=== PATIENT | male | born 1955 | race Caucasian/White ===

== ENCOUNTER → 2016-10-16 | Outpatient (CLI) | payer BC ==
--- NOTE | 2016-10-16 11:49 | RADRPT ---
PROCEDURE: XR Pelvis and Hips. CLINICAL INDICATION: Pelvic pain. Bilateral hip pain. TECHNIQUE: Five views. Frontal pelvis. Frontal and lateral right hip. Frontal and lateral left hip. COMPARISON: No prior studies are available for comparison. FINDINGS: There is no fracture or dislocation. The soft tissues are normal. There are moderate to severe degenerative changes of both hips with joint space narrowing, osteophyt es, subarticular sclerosis, and mild deformity. There is no lytic or blastic lesion. There are degenerative changes of the lower lumbar spine. IMPRESSION: 1. Moderate to severe degenerative changes of both hips. 2. Degenerative changes of the lower lumbar spine. 3. No acute abnormality. RPTAT: QQ .Geremias Rutledge MD, MD Date Time Electronically viewed and signed by .Geremias Rutledge MD, MD on 10/16/2016 11:49 .R/
== END | disposition home or self-care (01) ==
LOC: HKI 08:55
PROVIDERS: ATTEND Orthopaedic Surgery
DX: M16.0 Bilateral primary osteoarthritis of hip (principal); I10 Essential (primary) hypertension; M25.752 Osteophyte, left hip; M25.751 Osteophyte, right hip; Z87.828 Personal history of other (healed) physical injury and trauma
CPT/HCPCS: 73523; G0463

== ENCOUNTER → 2017-01-24 | Outpatient (CLI) | payer BC ==
[~2017-01-24] MED LIST: AMLO2.5T78 PO; LOSA1TAB20 PO
== END | disposition home or self-care (01) ==
LOC: HKI 10:22
PROVIDERS: ATTEND Orthopaedic Surgery
DX: Z01.818 Encounter for other preprocedural examination (principal); M16.0 Bilateral primary osteoarthritis of hip; M25.552 Pain in left hip; M25.551 Pain in right hip; I10 Essential (primary) hypertension; E66.01 Morbid (severe) obesity due to excess calories; Z68.41 Body mass index [BMI] 40.0-44.9, adult
CPT/HCPCS: G0463

== ENCOUNTER 2017-01-30 05:28 | Inpatient (IN) | payer BC ==
[2017-01-24 13:48] VITALS: Ht 185.4 cm; Wt 145.4 kg
[2017-01-30] VITALS (25 sets, daily range): BP systolic 116–151; BP diastolic 61–87; PULSE 66–79; RESP 12–20
[~2017-01-30] VITALS: Ht 185.4 cm; Wt 145.4 kg
[2017-01-30] MEDS ORDERED: SOD CHLORIDE 0.9% IV ONE (05:30)
[2017-01-30] MEDS ORDERED: PAIN COCKTAIL-CEFUROXIME IRR ONE ×7 (05:30)
[2017-01-30] MEDS ORDERED: TRANEXAMIC ACID IVPB ONE ×3 (05:30→16:30)
[2017-01-30] MEDS ORDERED: PREGABALIN 300 MG PO X1 PO ONE (05:30)
[2017-01-30] MEDS ORDERED: oxyCODONE (CR) 10 MG TAB [oxyCONTIN] X1 DOSE PO ONE (05:30)
[2017-01-30] MEDS ORDERED: CELECOXIB 400 MG PO X1 DOSE PO ONE (05:30)
[2017-01-30] MEDS ORDERED: LACTATED RINGER'S 1,000 ML IV SCH (05:30)
[2017-01-30] MEDS ORDERED: traMADOL 50 MG TAB X 1 DOSE PO ONE (05:30)
[2017-01-30] MEDS ORDERED: CEFAZOLIN 3 GM in SOD CHLORIDE 0.9% 100 ML IVPB ONE (05:30)
[2017-01-30] MEDS ORDERED: BUPIVACAINE LIPOSOME/PF 266 MG/20 ML VIAL INFIL ONE (05:30)
[2017-01-30] MEDS ORDERED: SOD CHLORIDE 0.9% IVPB ONE ×3 (05:30→16:30)
[2017-01-30] MEDS ORDERED: TRANEXAMIC ACID IV ONE (05:30)
[2017-01-30] MEDS ORDERED: PREG300C PO (06:11)
[2017-01-30] MEDS ORDERED: VANCOMYCIN 1 GM INJ ONE (06:49)
[2017-01-30] MEDS ORDERED: POLYMYXIN B 500000 UNIT INJ ONE (06:49)
[2017-01-30] MEDS ORDERED: BACITRACIN 50000 UNITS INJ ONE (06:51)
[2017-01-30] MEDS ORDERED: SUCCINYLCHOLINE CHLORIDE 100 MG/5 ML SYG IV ONE (07:00)
[2017-01-30] MEDS ORDERED: LIDOCAINE 2% (SDV) 5 ML INJ ONE (07:00)
[2017-01-30] MEDS ORDERED: MIDAZOLAM 1 MG/ML 2 ML INJ ONE (07:09)
[2017-01-30] MEDS ORDERED: PROPOFOL 20 ML ONE (07:09)
[2017-01-30] MEDS ORDERED: ROCURONIUM 50 MG INJ ONE (07:09)
[2017-01-30] MEDS ORDERED: NEOSTIGMINE 3 MG/3 ML SYRINGE ONE (07:09)
[2017-01-30] MEDS ORDERED: GLYCOPYRROLATE 0.4 MG INJ ONE (07:09)
[2017-01-30] MEDS ORDERED: FENTAnyl 50 MCG/ML VIAL ONE (07:09)
[2017-01-30] MEDS ORDERED: ONDANSETRON 4 MG INJ ONE (07:09)
[2017-01-30] MEDS ORDERED: CEFAZOLIN 1 GM INJ ONE ×2 (07:09→08:45)
[2017-01-30] MEDS ORDERED: DEXAMETHASONE 4 MG/ML 1 ML INJ ONE (07:09)
--- NOTE | 2017-01-30 07:14 | HPN ---
Date/Time of Note Date/Time of Note DATE: 01/30/17 TIME: 07:13 Interval H&P Admission Note Pt. seen H&P reviewed: No system changes No change from H&P on 01/25/2017 by NAINA Quach MD Jan 30, 2017 07:14
[2017-01-30] MEDS ORDERED: HYDROmorphONE (0.2 MG/ML) 10ML SYG IV PRN ×3 (08:30)
[2017-01-30] MEDS ORDERED: TRIMETHOBENZAMIDE 100 MG/ML VIAL IM PRN (08:30)
[2017-01-30] MEDS ORDERED: FENTAnyl 50 MCG/ML VIAL IV PRN ×3 (08:30)
[2017-01-30] MEDS ORDERED: DIPHENHYDRAMINE 50 MG INJ IV PRN (08:30)
[2017-01-30] MEDS ORDERED: MIDAZOLAM 1 MG/ML 2 ML INJ IV PRN (08:30)
[2017-01-30] MEDS ORDERED: EPHEDrine SULFATE 50 MG/5 ML SYG IV PRN (08:30)
[2017-01-30] MEDS ORDERED: ONDANSETRON 4 MG INJ IV PRN ×2 (08:30→10:30)
[2017-01-30] MEDS ORDERED: LABETALOL HCL 20MG INJ IV PRN (08:30)
[2017-01-30] MEDS ORDERED: MEPERIDINE 25 MG INJ IV PRN (08:30)
[2017-01-30] MEDS ORDERED: hydrALAzine 20 MG INJ IV PRN (08:30)
[2017-01-30] MEDS ORDERED: PROPOFOL 100 ML ONE (08:45)
[2017-01-30] MEDS ORDERED: EXPAREL NOTE (BUPIVICAINE LIPOSOMAL) XX SCH (10:00)
[2017-01-30] MEDS ORDERED: BISACODYL 10 MG SUPP PR PRN (10:30)
[2017-01-30] MEDS ORDERED: NA PHOSPHATE/BIPHOS 133 ML ENEMA PR PRN (10:30)
[2017-01-30] MEDS ORDERED: oxyCODONE 5 MG TAB PO PRN ×2 (10:30)
[2017-01-30] MEDS ORDERED: CEFAZOLIN 1 GM/50 ML (PMX) 50 ML IVPB SCH (10:30)
[2017-01-30] MEDS ORDERED: DIPHENHYDRAMINE 25 MG CAP PO PRN (10:30)
[2017-01-30] MEDS ORDERED: NACL 0.9% 3 ML SYG IV SCH (10:30)
[2017-01-30] MEDS ORDERED: ASPIRIN (EC) 325 MG TAB PO ONE ×2 (10:30→10:56)
[2017-01-30] MEDS ORDERED: HYDROmorphONE 1 MG/ML SYG IV PRN (10:30)
[2017-01-30] MEDS ORDERED: MAGNESIUM HYDROXIDE 30ML CUP PO PRN (10:30)
--- NOTE | 2017-01-30 10:41 | OPR ---
Date/Time of Note Date/Time of Note DATE: 01/30/17 TIME: 10:40 Operative Report Free Text/Dictation Dictation # [id number] Procedure Date: Jan 30, 2017 Preoperative Diagnosis Left Hip OA Postoperative Diagnosis Same Operation Performed Left Anterior RADHA Surgeon: NAINA CONTRERAS MD resident assistant: SOFIE KILLIAN PA-C Anesthesia: general Anesthesiologist: Lorne Quinones M.D. Estimated Blood Loss: 250 - 300 ml's Specimens Femoral Head Tubes/Drains Hemovac x 1 Complications: None Pt Condition Post Procedure: stable Disposition: PACU NAINA CONTRERAS MD Jan 30, 2017 10:41
--- NOTE | 2017-01-30 10:46 | PN ---
Date/Time of Note Date/Time of Note DATE: 01/30/17 TIME: 10:41 Assessment/Plan Lines/Catheters IV Catheter Type (from Nrsg): Peripheral IV Assessment/Plan Assessment/Plan Stable in PACU, s/p left anterior RADHA -continue Ancef 3g x 24 hours until drain removed -pain meds as needed -ASA/SCDs for DVT prophylaxis -OOB with PT -check AM labs -monitor drain -d/c torres in AM XR of the left hip is pending at this time Subjective 24 Hr Interval Summary Stable in PACU. Moving all extremities. Denies pain. Exam/Review of Systems Vital Signs Vitals Vital Signs Date Time Temp Pulse Resp B/P Pulse Ox O2 Delivery O2 Flow Rate FiO2 01/30/17 10:32 98.2 01/30/17 06:17 74 16 137/87 93 Room Air Intake and Output 01/29/17 01/29/17 01/30/17 15:00 23:00 07:00 Intake Total 0 ml Output Total 500 ml Balance -500 ml Exam Free Text/Dictation Hemovac: minimal Dressing dry Incision clean, dry, and intact without redness or drainage 5/5 Quadriceps, Tibialis Anterior, EHL, Gastroc, Soleus, Peroneals Normal sensation Palpable DT/PT, CR <2 sec No distal edema SOFIE KILLIAN PA-C Jan 30, 2017 10:46
[2017-01-30] MEDS: CEFAZOLIN 2 GM/50 ML (PMX) 50 ML IVPB SCH ×2 (11:06→19:36)
[2017-01-30 11:15] LABS: HEMATOCRIT 38.5 % (42.0-52.0); HEMOGLOBIN 12.9 g/dl (14.0-18.0)
[2017-01-30 11:27] LABS: CALCIUM 8.7 mg/dl (8.4-10.2); CREATININE 0.92 mg/dl (0.61-1.24); POTASSIUM 3.1 mmol/L (3.5-5.1)
--- NOTE | 2017-01-30 11:38 | OPR ---
DATE OF OPERATION: 01/30/2017 PREOPERATIVE DIAGNOSIS: Left hip osteoarthritis. POSTOPERATIVE DIAGNOSIS: Left hip osteoarthritis. OPERATION PERFORMED: Left anterior total hip arthroplasty. SURGEON: Naina Bruce MD LIBRARY TECHNICIAN: MAG Hua COMPONENTS USED: DePuy size 56 mm Gription Stockton cup, 56/36 neutral AltrX polyethylene liner, si ze 13 standard Corail stem, 36+5 ceramic head. ANESTHESIA: Spinal plus general endotracheal intubation plus periarticular injection. ANESTHESIOLOGIST: Dr. Joni MD ESTIMATED BLOOD LOSS: 300 mL. INTRAVENOUS FLUIDS: 2000 mL of crystalloid. SPECIMENS: Femoral head. DRAINS: Hemovac x1. COMPLICATIONS: None. DISPOSITION: Patient tolerated the procedure well and was taken to the recovery room in stable cond ition. INDICATIONS: The patient is a 61-year-old gentleman who has had progressive worsening pain in the l eft hip with radiographic evidence of severe osteoarthritis. He has failed nonsurgical means of zachary atment to control his pain including activity modifications, pain medications and ambulatory assist devices. Despite these measures, he has had worsening pain and I felt he would benefit from a total hip arthroplasty through an anterior approach. The risks, benefits, and alternatives of the procedure were explained in detail to the patient. I e xplained the risks of the surgery to include, but not be limited to: bleeding and possible need for blood transfusion; infection; pain; stiffness; neurovascular injury with possible numbness, weakness , and/or paralysis anywhere from the hip down to the toes; fracture; instability; dislocation; leg l ength inequality; wear and/or loosening of the prosthesis and possible need for future revision; blo od clots; pulmonary embolism; and anesthetic complications such as heart attack, stroke, GI bleed, p neumonia, and/or . Ample time was allowed for the patient to ask questions, all of which were addressed and answered. The patient understood the risks involved and wished to proceed. Informed c onsent was signed prior to the procedure. PROCEDURE: The patient's left hip was initialed with a marking pen in the preoperative area to ident pascual the correct operative site. The patient was brought to the operating room and transferred from the [facility] to the [facility] where a spinal anesthetic was administered. The patient was t hen anesthetized and intubated. A Dorantes catheter was placed. Both feet were placed into well-padde d boots, which were then placed into the leg holders of the traction booms. A timeout was performed to confirm that the left side was the correct operative site. The patient was given 2 g of intrave nous Ancef within one hour prior to the procedure. The operative hip was prepped and draped in the usual sterile fashion. A 10 cm oblique incision was made over the anterior aspect of the hip and carried down through subcu taneous tissue and fat with sharp dissection. The tensor fascia gerry was incised along the length o f the wound. The tensor fascia muscle was retracted laterally and the sartorius medially. The anter ior circumflex vessels were identified and tied off with 2-0 silk suture and coagulated with the [employer] [facility] child adolescent care. The rectus femoris was elevated off the anterior capsule and an anterior capsu lectomy performed. A femoral neck osteotomy was made and the head removed from the acetabulum. The acetabulum was denuded of cartilage circumferentially, as was the femoral head. Retractors were pl aced around the acetabulum. The remnants of the labrum and ligamentum teres were excised. I reamed the acetabulum to the medial wall and then went into an anatomic position and increased the reamer size in 2 mm increments until I got a good bite and was down to bleeding subchondral bone. The Stockton cup was opened and impacted into the acetabulum and sat flush circumferentially, gettin g a good bite. C-arm imaging showed it had about 40 to 45 degrees of abduction and 20 degrees of ant eversion. The real liner was opened and impacted into the acetabulum and sat flush circumferentially . Attention was turned towards the femur. The operative leg was carefully lowered to the floor with the leg adducted. The foot was then exter xi rotated to approximately 110 degrees. A posteromedial release was performed to optimize expos ure. The femoral hook was placed underneath the proximal femur and the hydraulic lift was then used to elevate the femur up out of the wound. The greg cutter osteotome was used to remove the remai jaymie overhanging greater trochanter. The femur was then broached, going up in one size increments u ntil it sat flush with the neck cut and a stable fit was achieved. The trial neck and head were ass embled and reduced into the acetabulum. Fluoroscopic imaging showed the components to be in good pos ition and the leg lengths and offsets to be equal. At this point, the trial was dislocated and the trial broach removed. The canal was irrigated and d ried. The real stem was opened and impacted into the femur. The trunnion was irrigated and dried, a nd the real femoral head was impacted onto the trunnion, and reduced into the acetabulum. The soft tissues were infiltrated with a mixture of 150 mg of 0.5% Bupivacaine, 8 mg of Duramorph, 3 00 mcg of epinephrine, 30 mg of Toradol, 100 mcg of clonidine, 750 mg of cefuroxime and 86 mL of nor mal saline, followed by an injection of 266 mg of liposomal Bupivacaine. At this point the hip was irrigated with a mixture of betadine/saline and then antibiotic saline with pulsatile lavage. A Hem ovac drain was placed in the deep portion of the wound and brought out the anterolateral thigh. Ther e was good hemostasis. The tensor fascia gerry was repaired with a running #1 Vicryl. The deep fat layer was irrigated and closed with 2-0 Stratafix and the subcutaneous layer closed with 3-0 Vicryl and the skin was closed with dipti and then sealed with Dermabond. The drain was secured with 3-0 nylon. The sponge and needle counts were correct at the end of the case. The wound was covered with an occ lusive dressing. The patient was awakened, extubated, and taken to the recovery room in stable cond ition. Dictated By: NAINA ABBOTT/CLARISSA Conf#: [id number] DID#: [id number]
[2017-01-30] MEDS: traMADol 50 MG TAB PO SCH ×3 (11:43→23:14)
--- NOTE | 2017-01-30 12:23 | RADRPT ---
PROCEDURE: XR Pelvis. CLINICAL INDICATION: Postop TECHNIQUE: Single AP view of the pelvis. COMPARISON: 10/16/2016 FINDINGS: Left hip arthroplasty hardware is present. Visualized hardware is intact and appears well seated. No fracture or dislocation is seen. Overlying postoperative soft tissue swelling/gas and surgical dr soham, as well. Dorantes catheter noted. There are severe right hip degenerative changes. IMPRESSION: Postoperative changes, status post left hip arthroplasty. Severe right hip degenerative changes. RPTAT: VV .David Dumont MD, MD Date Time Electronically viewed and signed by .David Dumont MD, MD on 01/30/2017 12:23 .O/
--- NOTE | 2017-01-30 12:24 | RADRPT ---
PROCEDURE: XR hip. CLINICAL INDICATION: Postop TECHNIQUE: Single AP view of the left hip. COMPARISON: 10/16/2016 FINDINGS: Left hip arthroplasty hardware is present. The hardware is intact and appears well seated. No frac ture or dislocation is seen. Overlying postoperative soft tissue swelling/gas and surgical drain, as well. Dorantes catheter noted. IMPRESSION: Postoperative changes, status post left hip arthroplasty. RPTAT: VV .David Dumont MD, MD Date Time Electronically viewed and signed by .David Dumont MD, MD on 01/30/2017 12:24 .O/
--- NOTE | 2017-01-30 12:26 | RADRPT ---
PROCEDURE: XR fluoro guidance CLINICAL INDICATION: Left hip replacement TECHNIQUE: Intraoperative fluoroscopy provided with 20 images submitted. Total fluoro time 0.8-mi nute. COMPARISON: Pelvic/hip radiographs 10/16/2016 FINDINGS: Left hip arthroplasty performed. See operative report for details. IMPRESSION: Intraoperative fluoroscopy provided for left hip arthroplasty. RPTAT: VV .David Dumont MD, MD Date Time Electronically viewed and signed by .David Dumont MD, MD on 01/30/2017 12:26 .O/
--- NOTE | 2017-01-30 13:40 | CONS ---
DATE OF ADMISSION: 01/30/2017 DATE OF CONSULTATION: 01/30/2017 TYPE OF CONSULTATION: Nephrology postoperative medical consultative note. Thank you very much for allowing me to evaluate this 61-year-old male who just underwent left total hip arthroplasty. HISTORICAL EVENTS: As you well know, this patient has had progressive disabling pain involving his left hip, and elected to proceed with your recommended surgery. Postoperatively, he denies cough, w heezing, shortness of breath, nausea, vomiting, abdominal or chest pain. PAST MEDICAL HISTORY INCLUDES: 1. Bariatric weight loss surgery. 2. Known cervical spine disease. 3. Hypertension. 4. History of diabetes. 5. Obesity. SOCIAL HISTORY: He does not smoke. Retired, was involved in investment. ALLERGIES: NONE. MEDICATIONS: 1. Amlodipine 5 per day. 2. Lyrica 100 mg 1 capsule twice a day. 3. Hydrochlorothiazide. 4. Losartan 25/100 mcg per day. PHYSICAL EXAMINATION: GENERAL: Mcd[place] male in no acute distress. VITAL SIGNS: BP 122/80, pulse 70, respirations 20, he was afebrile. EYES: Extraocular muscles were full. NOSE, MOUTH, AND THROAT: Normal. NECK: Supple. There was no jugular venous distention, thyroid enlargement or adenopathy. Carotids 2+. LUNGS: Clear. HEART: Rhythm regular, no murmur. No third or fourth sound. ABDOMEN: Nontender. Liver and spleen were not palpable. No masses or tenderness were noted. EXTREMITIES: No edema. IMPRESSION: 1. Stable post left hip replacement. 2. History of hypertension. Will continue his blood pressure meds and observe BP throughout. 3. Will evaluate daily for signs and symptoms of thromboembolic disease. 4. History of diabetes. Will monitor sugars prior to meals. Dictated By: REMI BAHENA MD MR/NTS Conf#: [id number] DID#: [id number]
[2017-01-30] MEDS: LACTATED RINGER'S 1,000 ML IV SCH ×2 (14:01→18:57)
[2017-01-30] MEDS ORDERED: POTASSIUM CHLORIDE (SR) 20 MEQ TAB PO STA (14:33)
[2017-01-30 16:51] LABS: ADD UMIC YES; URINE BILIRUBIN (Dip) NEGATIVE (NEGATIVE); URINE BLOOD (Dip) NEGATIVE (NEGATIVE); URINE COLOR LT. YELLOW (YELLOW); URINE GLUCOSE (Dip) NEGATIVE (NEGATIVE); URINE KETONES (Dip) NEGATIVE (NEGATIVE); URINE LEUKOCYTE ESTERASE (Dip) NEGATIVE (NEGATIVE); URINE NITRITE (Dip) NEGATIVE (NEGATIVE); URINE TOTAL PROTEIN (Dip) TRACE (NEGATIVE); URINE UROBILINOGEN (Dip) 0.2 E.U./dL (0.1-1.0)
[2017-01-30 17:01] LABS: SQUAMOUS EPITHELIAL CELL,UR RARE; URINE RBCS 0-2 /HPF (0)
[2017-01-30] MEDS ORDERED: POTASSIUM CHLORIDE (SR) 20 MEQ TAB PO ONE ×2 (18:00→22:37)
[2017-01-30] MEDS: PANTOPRAZOLE (EC) 40 MG TAB PO SCH (18:56)
[2017-01-30] MEDS ORDERED: PREGABALIN 100 MG CAP PO SCH (21:00)
[2017-01-30] MEDS: DOCUSATE SODIUM 100 MG CAP PO SCH (21:00)
[2017-01-30] MEDS: PREGABALIN 100 MG CAP PO SCH (21:00)
[2017-01-31 00:04] VITALS: BP 112/59; RESP 20
[2017-01-31] MEDS: LACTATED RINGER'S 1,000 ML IV SCH ×3 (02:10→18:28)
[2017-01-31] MEDS: CEFAZOLIN 2 GM/50 ML (PMX) 50 ML IVPB SCH (03:10)
[2017-01-31 06:02] LABS: ADD SCAN DIFF NO
[2017-01-31] MEDS: PANTOPRAZOLE (EC) 40 MG TAB PO SCH ×2 (06:14→17:47)
[2017-01-31] MEDS: traMADol 50 MG TAB PO SCH ×3 (06:14→17:47)
[2017-01-31 06:23] LABS: ABNORMAL IP MESSAGE 1; BASOPHILS % 0.1 % (0.0-2.0); HEMATOCRIT 35.7 % (42.0-52.0); HEMOGLOBIN 11.6 g/dl (14.0-18.0); LYMPHOCYTES # 0.6 10^3/ul (0.8-2.9); LYMPHOCYTES % 3.6 % (15.0-51.0); MEAN CORPUSCULAR HEMOGLOBIN 28.6 pg (29.0-33.0); MEAN CORPUSCULAR HGB CONC 32.5 g/dl (32.0-37.0); MEAN CORPUSCULAR VOLUME 88.1 fl (82.0-101.0); MONOCYTE # 1.3 10^3/ul (0.3-0.9); MONOCYTES % 8.6 % (0.0-11.0); NEUTROPHIL # 13.5 10^3/ul (1.6-7.5); NEUTROPHILS % 87.1 % (39.0-77.0); PLATELET COUNT 205 10^3/UL (140-415); RED BLOOD COUNT 4.05 10^6/ul (4.70-6.10); RED CELL DISTRIBUTION WIDTH 13.3 % (11.5-14.5); WHITE BLOOD COUNT 15.5 10^3/ul (4.8-10.8)
[2017-01-31 06:24] LABS: HEMOGLOBIN 11.8 g/dl (14.0-18.0)
[2017-01-31 06:38] LABS: POTASSIUM 3.7 mmol/L (3.5-5.1)
[2017-01-31 06:41] LABS: CALCIUM 8.5 mg/dl (8.4-10.2); CREATININE 0.78 mg/dl (0.61-1.24)
--- NOTE | 2017-01-31 08:40 | CONS ---
Date/Time of Note Date/Time of Note DATE: 01/31/17 TIME: 08:39 Assessment/Plan Assessment/Plan Additional Assessment/Plan 1. Doing well post op left hip replacement 2. BP is controlled 3. Low K has resolved Consultation Date/Type/Reason Admit Date/Time Jan 30, 2017 at 05:28 Initial Consult Date Detailed Summary Respiratory: No shortness of breath Cardiovascular: No chest pain, No lightheadedness, No orthopenea Gastrointestinal: no complaints Genitourinary: other (torres in place) Musculoskeletal: bone/joint pain (mild left hip pain) Exam/Review of Systems Vital Signs Vitals Vital Signs Date Time Temp Pulse Resp B/P Pulse Ox O2 Delivery O2 Flow Rate FiO2 01/31/17 00:04 98.1 72 20 112/59 97 01/30/17 14:59 Nasal Cannula 2.0 Intake and Output 01/30/17 01/30/17 01/31/17 15:00 23:00 07:00 Intake Total 3714.5 ml 1400 ml 925 ml Output Total 1100 ml 1180 ml Balance 3714.5 ml 300 ml -255 ml Exam Neck: No jvd Respiratory: clear to auscultation Cardiovascular: regular rate and rhythm Gastrointestinal: soft Extremities: No edema (and no calf tend) Results Result Diagram: 01/31/17 0500 01/31/17 0500 Results 24 hrs Laboratory Tests Test 01/30/17 10:30 01/30/17 10:55 01/30/17 13:40 01/30/17 14:45 Urine Color LT. YELLOW Urine Clarity CLEAR Urine pH 6.0 Urine Specific [place] 1.010 Urine Ketones NEGATIVE Urine Nitrite NEGATIVE Urine Bilirubin NEGATIVE Urine Urobilinogen 0.2 E.U./dL Urine Leukocyte Esterase NEGATIVE Urine Microscopic RBC 0-2 Urine Microscopic WBC 0-2 Urine Squamous Epithelial Cells RARE Urine Hemoglobin NEGATIVE Urine Glucose NEGATIVE Urine Total Protein TRACE Hemoglobin 12.9 L Hematocrit 38.5 L Sodium Level 135 Potassium Level 3.1 L 2.7 *L Chloride Level 102 Carbon Dioxide Level 28 Anion Gap 8 Blood Urea Nitrogen 17 Creatinine 0.92 Glucose Level 145 Calcium Level 8.7 Magnesium Level 1.8 Test 01/30/17 21:05 01/31/17 05:00 Potassium Level 3.3 L 3.7 White Blood Count 15.5 H Red Blood Count 4.05 L Hemoglobin 11.8 L Hematocrit 36.0 L Mean Corpuscular Volume 88.1 Mean Corpuscular Hemoglobin 28.6 L Mean Corpuscular Hemoglobin Concent 32.5 Red Cell Distribution Width 13.3 Platelet Count 205 Mean Platelet Volume 11.0 H Neutrophils % 87.1 H Lymphocytes % 3.6 L Monocytes % 8.6 Eosinophils % 0.0 Basophils % 0.1 Nucleated Red Blood Cells % 0.0 Neutrophils # 13.5 H Lymphocytes # 0.6 L Monocytes # 1.3 H Eosinophils # 0.0 Basophils # 0.0 Nucleated Red Blood Cells # 0.0 Sodium Level 139 Chloride Level 101 Carbon Dioxide Level 30 Anion Gap 12 Blood Urea Nitrogen 15 Creatinine 0.78 Glucose Level 104 # Calcium Level 8.5 Phosphorus Level 3.4 Medications Medications Current Medications Amlodipine Besylate 5 mg 5 mg DAILY PO ; Start 01/31/17 at 09:00 Lactated Ringer's (Lr) 1,000 ml @ 125 mls/hr Q8H IV Last administered on 02:10; Admin Dose 125 MLS/HR; Start 01/30/17 at 10:28 Celecoxib (Celebrex) 200 mg DAILY PO ; Start 01/31/17 at 09:00 Tramadol HCl (Ultram) 50 mg Q6 PO Last administered on 01/31/17 06:14; Admin Dose 50 MG; Start 01/30/17 at 11:22; Stop 02/02/17 at 11:21 Oxycodone HCl (Roxicodone) 5 mg Q4H PRN PO PAIN LEVEL 1-3; Start 01/30/17 at 10 :30 Oxycodone HCl (Roxicodone) 10 mg Q4H PRN PO PAIN LEVEL 4-7; Start 01/30/17 at 10:30 Hydromorphone HCl (Dilaudid) 1 mg Q3H PRN IV PAIN LEVEL 8-10; Start 01/30/17 at 10:30 Ondansetron HCl (Zofran Inj) 4 mg Q6H PRN IV NAUSEA AND/OR VOMITING; Start at 10:30 Bisacodyl (Dulcolax Supp) [address] CONSTIPATION; Start 01/30/17 at 10: 30 Magnesium Hydroxide (Milk Of Mag) 30 ml BID PRN PO CONSTIPATION; Start at 10:30 Sodium Biphosphate/ Sodium Phosphate (Fleet Enema) [address] CONSTIPATION; Start 01/30/17 at 10:30 Docusate Sodium (Colace) 100 mg BID PO ; Start 01/30/17 at 21:00 Diphenhydramine HCl (Benadryl) 25 mg Q6H PRN PO PRURITUS; Start 01/30/17 at 10: 30 Aspirin (Ecotrin) 325 mg BID PO ; Start 01/31/17 at 09:00 Pantoprazole (Protonix Tab) 40 mg BID@06,18 PO Last administered on 01/31/17t 06:14; Admin Dose 40 MG; Start 01/30/17 at 18:00 Pregabalin (Lyrica) 100 mg BID PO ; Start 01/30/17 at 21:00 Losartan Potassium (Cozaar) 100 mg DAILY PO ; Start 01/31/17 at 09:00 REMI BAHENA MD Jan 31, 2017 08:40
--- NOTE | 2017-01-31 08:43 | PN ---
Date/Time of Note Date/Time of Note DATE: 01/31/17 TIME: 08:41 Assessment/Plan Lines/Catheters IV Catheter Type (from Nrsg): Peripheral IV Dorantes in Place (from Nrsg): Yes Assessment/Plan Assessment/Plan Stable POD #1, s/p left anterior RADHA -d/c abx -pain meds as needed -ASA/SCDs for DVT prophylaxis -OOB with PT -drain removed -check AM labs -possible discharge home tomorrow of sunday Subjective 24 Hr Interval Summary No acute overnight events. Denies any significant pain. Had mild hypokalemia which has been repleted by medicine. Denies f/c. VSS, afebrile. Will plan to go home upon discharge. Exam/Review of Systems Vital Signs Vitals Vital Signs Date Time Temp Pulse Resp B/P Pulse Ox O2 Delivery O2 Flow Rate FiO2 01/31/17 00:04 98.1 72 20 112/59 97 01/30/17 14:59 Nasal Cannula 2.0 Intake and Output 01/30/17 01/30/17 01/31/17 15:00 23:00 07:00 Intake Total 3714.5 ml 1400 ml 925 ml Output Total 1100 ml 1180 ml Balance 3714.5 ml 300 ml -255 ml Exam Free Text/Dictation Hemovac: 180cc Dressing dry Incision clean, dry, and intact without redness or drainage 5/5 Quadriceps, Tibialis Anterior, EHL, Gastroc, Soleus, Peroneals Normal sensation Palpable DT/PT, CR <2 sec No distal edema Results Result Diagram: 01/31/17 0500 01/31/17 0500 SOFIE KILLIAN PA-C Jan 31, 2017 08:42
[2017-01-31] MEDS: ASPIRIN (EC) 325 MG TAB PO SCH ×2 (08:57→20:57)
[2017-01-31] MEDS: PREGABALIN 100 MG CAP PO SCH ×2 (08:57→20:57)
[2017-01-31] MEDS: DOCUSATE SODIUM 100 MG CAP PO SCH ×2 (08:57→20:58)
[2017-01-31] MEDS: CELECOXIB 200 MG CAP PO SCH (08:57)
[2017-01-31] MEDS: AMLODIPINE 5 MG TAB PO SCH (08:58)
[2017-01-31] MEDS ORDERED: POTASSIUM CHLORIDE (SR) 10 MEQ TAB PO ONE (09:00)
[2017-01-31] MEDS ORDERED: NON-FORMULARY/PATIENT OWN MED (Losartan-Hydrochlorothiazide (Losartan-HCTZ) 1 TAB) PO SCH (09:00)
[2017-01-31] MEDS ORDERED: HYDROCODONE/APAP (5/325) TAB PO PRN (09:00)
[2017-01-31] MEDS ORDERED: HYDROCHLOROTHIAZIDE 25 MG TAB PO SCH (09:00)
[2017-01-31] MEDS: LOSARTAN 50 MG TAB PO SCH (09:00)
[2017-01-31 19:20] VITALS: BP 114/57; RESP 18
[2017-01-31] MEDS: HYDROCODONE/APAP (5/325) TAB PO PRN (19:40)
[2017-02-01 05:20] LABS: HEMATOCRIT 34.2 % (42.0-52.0); HEMOGLOBIN 11.2 g/dl (14.0-18.0)
[2017-02-01 05:27] LABS: CREATININE 0.73 mg/dl (0.61-1.24)
[2017-02-01 05:28] LABS: CALCIUM 8.2 mg/dl (8.4-10.2)
[2017-02-01] MEDS: traMADol 50 MG TAB PO SCH ×3 (05:54→12:10)
[2017-02-01] MEDS: PANTOPRAZOLE (EC) 40 MG TAB PO SCH (05:54)
[2017-02-01 08:31] VITALS: BP 109/71; RESP 18
[2017-02-01] MEDS: AMLODIPINE 5 MG TAB PO SCH (09:00)
[2017-02-01] MEDS: LOSARTAN 50 MG TAB PO SCH (09:00)
[2017-02-01] MEDS: CELECOXIB 200 MG CAP PO SCH (09:01)
[2017-02-01] MEDS: DOCUSATE SODIUM 100 MG CAP PO SCH (09:01)
[2017-02-01] MEDS: ASPIRIN (EC) 325 MG TAB PO SCH (09:01)
[2017-02-01] MEDS: PREGABALIN 100 MG CAP PO SCH (09:04)
[2017-02-01] MEDS: HYDROCODONE/APAP (5/325) TAB PO PRN (09:11)
--- NOTE | 2017-02-01 10:30 | PN ---
Date/Time of Note Date/Time of Note DATE: 02/01/17 TIME: 10:29 Assessment/Plan Lines/Catheters IV Catheter Type (from Nrsg): Saline Lock Dorantes in Place (from Nrsg): No Assessment/Plan Assessment/Plan Stable POD #2, s/p left anterior RADHA -pain meds as needed -ASA/SCDs for DVT prophylaxis -OOB with PT -dressing changed -d/c home today -follow up in the office on 02/09/17 Subjective 24 Hr Interval Summary No acute overnight events. Denies any significant pain. Progressing well with PT. VSS, afebrile. Would like to go home today. Exam/Review of Systems Vital Signs Vitals Vital Signs Date Time Temp Pulse Resp B/P Pulse Ox O2 Delivery O2 Flow Rate FiO2 02/01/17 08:31 98.2 69 18 109/71 95 01/30/17 14:59 Nasal Cannula 2.0 Intake and Output 01/31/17 01/31/17 02/01/17 15:00 23:00 07:00 Intake Total 900 ml 350 ml Output Total 1000 ml 550 ml Balance -100 ml -200 ml Exam Free Text/Dictation Dressing dry Incision clean, dry, and intact without redness or drainage 02/09 Quadriceps, Tibialis Anterior, EHL, Gastroc, Soleus, Peroneals Normal sensation Palpable DT/PT, CR <2 sec No distal edema Results Result Diagram: 02/01/17 0455 02/01/17 0455 SOFIE KILLIAN PA-C Feb 01, 2017 10:30
--- NOTE | 2017-02-01 10:31 | PDOCDIS ---
Discharge Instructions DIAGNOSIS Discharge Diagnosis: s/p left anterior RADHA CONDITION Patient Condition: Good HOME CARE INSTRUCTIONS: Diet Instructions: Regular ACTIVITY: Activity Restrictions: Slowly Increase Activity Rest between Activity Avoid heavy lifting Do not operate Machinery Do not operate Power Tool Avoid Heavy Housework Keep Limb Elevated Bathing Restrictions: Shower FOLLOW UP/APPOINTMENTS Appointments follow up in the office on 02/09/17 OTHER ORDERS: Other Orders: S/P Anterior RADHA Physical Therapy: Three times per week at home x 2 weeks Daily in Rehab/SNF if applicable WB STATUS: WBAT Strengthening exercises for both upper and un-operated lower extremities. 1. Gait training with front wheeled walker 2. Wide base gait, no pivot turns. 3. Abductor strengthening. 4. Quadriceps and hamstring strengthening. 5. May switch to cane in contra lateral hand 6 weeks after surgery. 6. Physical Therapy can open case if nursing is not available. 7. Ice Packs while at rest to surgical wound for 20 minutes, 3 times/day. 8. Patient requires mobile SCDs to reduce risk of developing DVT following RADHA. Patient will use the mobile SCDs for 30 days postoperatively. Hip Precautions: No posterior hip precautions. Bathing assistance by home health aide twice weekly if Medicare patient. Occupational Therapy: Evaluation for assistive devices and ADL training. Wound Care: Keep incision dry & covered with Tegaderm until first visit with Dr. Bruce Anticoagulation Orders: Enteric Coated Aspirin 325 mg po bid x 6 weeks from date of surgery Follow-up:Call for an appointment with Dr. Bruce in 1 week after discharged from hospital at DME Orders: TRISHA, 3-in-1 Commode, Mobile SCDs SOFIE KILLIAN PA-C Feb 01, 2017 10:31
[2017-02-01] MEDS ORDERED: PANT40TA4 PO (10:32)
[2017-02-01] MEDS ORDERED: TRAM50TA2 PO (10:32)
[2017-02-01] MEDS ORDERED: ASPI325T32 PO (10:32)
[2017-02-01] MEDS ORDERED: HYDR-906 PO (10:32)
--- NOTE | 2017-02-01 11:09 | CONS ---
Date/Time of Note Date/Time of Note DATE: 02/01/17 TIME: 11:08 Assessment/Plan Assessment/Plan Additional Assessment/Plan 1, Stable post op left hip replacemetn. 2. BP well controlled 3. Lytes are nl 4. Can be dc if ok with ortho and pt Consultation Date/Type/Reason Admit Date/Time Jan 30, 2017 at 05:28 Detailed Summary Respiratory: No cough, No shortness of breath Cardiovascular: No chest pain Gastrointestinal: No no complaints Genitourinary: no complaints Musculoskeletal: bone/joint pain (mild left hip pain) Exam/Review of Systems Vital Signs Vitals Vital Signs Date Time Temp Pulse Resp B/P Pulse Ox O2 Delivery O2 Flow Rate FiO2 02/01/17 08:31 98.2 69 18 109/71 95 01/30/17 14:59 Nasal Cannula 2.0 Intake and Output 01/31/17 01/31/17 02/01/17 15:00 23:00 07:00 Intake Total 900 ml 350 ml Output Total 1000 ml 550 ml Balance -100 ml -200 ml Exam Neck: No jvd Respiratory: clear to auscultation Cardiovascular: regular rate and rhythm Gastrointestinal: soft Extremities: No edema (and no calf tend) Results Result Diagram: 02/01/17 0455 02/01/17 0455 Results 24 hrs Laboratory Tests Test 02/01/17 04:55 Hemoglobin 11.2 L Hematocrit 34.2 L Sodium Level 139 Potassium Level 4.0 Chloride Level 102 Carbon Dioxide Level 30 Anion Gap 11 Blood Urea Nitrogen 16 Creatinine 0.73 Glucose Level 92 Calcium Level 8.2 L Medications Medications Current Medications Amlodipine Besylate (Norvasc) 5 mg DAILY PO ; Start 01/31/17 at 09:00 Celecoxib (Celebrex) 200 mg DAILY PO Last administered on 02/01/17 09:01; Admin Dose 200 MG; Start 01/31/17 at 09:00 Tramadol HCl (Ultram) 50 mg Q6 PO Last administered on 02/01/17 05:54; Admin Dose 50 MG; Start 01/30/17 at 11:22; Stop 02/02/17 at 11:21 Hydromorphone HCl (Dilaudid) 1 mg Q3H PRN IV PAIN LEVEL 8-10; Start 01/30/17 at 10:30 Ondansetron HCl (Zofran Inj) 4 mg Q6H PRN IV NAUSEA AND/OR VOMITING; Start at 10:30 Bisacodyl (Dulcolax Supp) 10 mg Q12H PRN HI CONSTIPATION; Start 01/30/17 at 10: 30 Magnesium Hydroxide (Milk Of Mag) 30 ml BID PRN PO CONSTIPATION; Start at 10:30 Sodium Biphosphate/ Sodium Phosphate (Fleet Enema) 133 ml DAILY PRN HI CONSTIPATION; Start 01/30/17 at 10:30 Docusate Sodium (Colace) 100 mg BID PO Last administered on 02/01/17 09:01; Admin Dose 100 MG; Start 01/30/17 at 21:00 Diphenhydramine HCl (Benadryl) 25 mg Q6H PRN PO PRURITUS; Start 01/30/17 at 10: 30 Aspirin (Ecotrin) 325 mg BID PO Last administered on 02/01/17 09:01; Admin Dose 325 MG; Start 01/31/17 at 09:00 Pantoprazole (Protonix Tab) 40 mg BID@,18 PO Last administered on 02/01/17 05:54; Admin Dose 40 MG; Start 01/30/17 at 18:00 Pregabalin (Lyrica) 100 mg BID PO Last administered on 02/01/17 09:04; Admin Dose 100 MG; Start 01/30/17 at 21:00 Losartan Potassium (Cozaar) 100 mg DAILY PO ; Start 01/31/17 at 09:00 Acetaminophen/ Hydrocodone Bitart (Wray (5/325)) 1 tab Q4H PRN PO PAIN LEVEL 1 -3 Last administered on 02/01/17 09:11; Admin Dose 1 TAB; Start 01/31/17 at 09: 00 Acetaminophen/ Hydrocodone Bitart ([place]ray (5/325)) 2 tab Q4H PRN PO PAIN LEVEL 4 -6; Start 01/31/17 at 09:00 REMI BAHENA MD Feb 01, 2017 11:09
--- NOTE | 2017-02-02 05:55 | DS ---
DATE OF ADMISSION: 01/30/2017 DATE OF DISCHARGE: 02/01/2017 CONDITION ON DISCHARGE: Stable. ADMITTING DIAGNOSIS: Left hip osteoarthritis. DISCHARGE DIAGNOSIS: Status post left anterior total hip arthroplasty. PROCEDURE PERFORMED: Left anterior total hip arthroplasty. HOSPITAL COURSE: This is a 61-year-old male who presented to the clinic initially complaining of left hip pain. Radiographs were done and demonstrated advanced osteoarthritis of the left hip. It was thought he would benefit from a left anterior total hip arthroplasty. On 01/30/2017, the patient was admitted and taken to the operating room where he underwent a left anterior total hip arthroplasty. There were no intraoperative complications. The patient tolerated the procedure well. He was taken to the recovery room in stable condition. Pain was well controlled with oral pain medication. He was started on aspirin and SCDs for DVT prophylaxis. He remained hemodynamically stable and neurovascularly intact throughout his hospital stay. He began physical therapy on postoperative day 1 and was deemed stable for discharge on postoperative day 2. Prior to discharge, the incision was inspected and noted to be clean, dry, and intact. Dressing changes were done prior to the patient going home. LABORATORY ANALYSIS: Hemoglobin 11.2, hematocrit 34.2. Chemistry panel was within normal limits. DISCHARGE MEDICATIONS: 1. [place] 5/325 mg. 2. Tramadol 50 mg. 3. Protonix 40 mg. 4. Aspirin 325 mg. Additionally, the patient is to resume all of his normal home medications. DISCHARGE INSTRUCTIONS: The patient will be discharged home in stable condition. He is to resume normal diet. He is weightbearing as tolerated on the left lower extremity. He will begin physical therapy with home health. He will be discharged home with the medications noted above and is to resume all of his normal home medications. The patient is to call the office or go to the emergency room for any concerns including increased redness, swelling, drainage , fever, or any concerns regarding the operation or site of incision. The patient is to follow up in the office on 02/09/2017. Dictated By: SOFIE BENSON/CLARISSA Conf#: [id number] DID#: [id number] MTDD
== END 2017-02-01 14:36 | disposition home health service (06) | DRG 470 ==
LOC: REC 05:28 → MS1 11:29
PROVIDERS: ADMIT Orthopaedic Surgery; ATTEND Orthopaedic Surgery
PROC: 0SRB04A Replacement of Left Hip Joint with Ceramic on Polyethylene Synthetic Substitute, Uncemented, Open Approach (ICD-10-PCS; principal; 2017-01-30 07:00)
DX: M16.12 Unilateral primary osteoarthritis, left hip (principal); Z68.41 Body mass index [BMI] 40.0-44.9, adult; I10 Essential (primary) hypertension; E11.9 Type 2 diabetes mellitus without complications; E66.01 Morbid (severe) obesity due to excess calories; E87.6 Hypokalemia; Z79.4 Long term (current) use of insulin; Z98.84 Bariatric surgery status
CPT/HCPCS: 72170; 73500; 73530; 80048; 81001; 81003; 83735; 84100; 84132; 85014; 85018; 85025; 86850; 86900; 86901; 86920; 87081; 87086; 97110; 97116; 97162; 97530; C1776; C9290; J0171; J0330; J0690; J0697; J0735; J1100; J1885; J2250; J2274; J2405; J2710; J3010; J3370; J7120

== ENCOUNTER → 2017-02-09 | Outpatient (CLI) | payer BC ==
[~2017-02-09] MED LIST changes: +ASPI325T32 PO; +HYDR-906 PO; +PANT40TA4 PO; +TRAM50TA2 PO
--- NOTE | 2017-02-09 11:05 | HKNOTE ---
DATE OF SERVICE: 02/09/2017 INTERVAL HISTORY: The patient presents today for his first postoperative evaluation on his left hip. He is 10 days status post left anterior total hip arthroplasty. He is doing satisfactory overall. He is working with physical therapy at home. He has also been taking aspirin twice daily for DVT prophylaxis. The patient is currently applying clotrimazole cream to his abdominal fold, as he does have a concurrent fungal infection near the incision. He denies any pus or drainage from the incision itself, however. Denies any fevers or chills. He presents today for his first postoperative evaluation. PHYSICAL EXAMINATION: On exam today he is alert and oriented x4, and in no acute distress. He is ambulating with a front-wheel walker. Exam of the incision demonstrates it to be dry and intact. The incision is well approximated and does not appear to be opening, but the adjacent skin does appear raw. [place] are in place. There is significant erythema and skin breakdown under the abdominal folds secondary to his body habitus that extends towards the top of the incision. There is no warmth to touch. There is no pus or drainage noted. There is a whitish film layer that is difficult to scrape off. It is mildly malodorous. Homans sign is negative. He does have some soft tissue swelling distally as well. His neurovascularly status is intact distally as well. IMAGING: X-rays of the left hip were obtained today and reviewed by me. They demonstrated good anatomic alignment of the prosthesis with no fracture or dislocation identified. ASSESSMENT: Ten days status post left anterior total hip arthroplasty. PLAN: The dipti were removed today; however, the Steri-Strips were held secondary to the skin irritation and what appears to be a fungal infection under his abdominal folds. Will start him on Keflex and Bactrim concomitantly to cover for any bacterial skin infection. The patient should continue to use the clotrimazole cream as prescribed by his fire prevention officer and keep the area as clean and dry as possible. Additionally, we will send the patient for a vascular study to rule out a DVT of the left lower extremity. The patient will give me a call next week to let me know how the incision is doing, at which point he may have to come back in or speak to his fire prevention officer about stronger agents to rid the infection. This will be discussed with Dr. Bruce as well. The patient is to call the office if he has any concerns. ADDENDUM: doppler of the left lower extremity was completed and negative for any signs of DVT. Dictated By: SOFIE HATHAWAY for NAINA BENSON/CLARISSA Conf#: [id number] DID#: [id number] MTDD
--- NOTE | 2017-02-09 13:31 | RADRPT ---
PROCEDURE: XR Left Hip and pelvis. CLINICAL INDICATION: Left hip pain. Pelvic pain. Postop. TECHNIQUE: Two views. Frontal pelvis and frontal left hip. COMPARISON: 01/30/2017. FINDINGS: There is no fracture or dislocation. Left lateral skin dipti are noted. The left hip surgical drain has been removed. There is a left hip total arthroplasty which appears satisfactory. There are degenerative changes of the right hip with joint space narrowing, osteophytes, subarticula r sclerosis, subarticular cysts, and deformity. There is no lytic or blastic lesion. The upper pelvis is not included on the image. IMPRESSION: 1. Satisfactory postoperative appearance of the left hip. 2. Left hip surgical drain removed. 3. Severe degenerative changes of the right hip. RPTAT: QQ .Geremias Rutledge MD, Date Time Electronically viewed and signed by .Geremias Rutledge MD, on 02/09/2017 13:30 .R/
== END | disposition home or self-care (01) ==
LOC: HKI 10:04
PROVIDERS: ATTEND Orthopaedic Surgery
DX: Z47.1 Aftercare following joint replacement surgery (principal); Z96.642 Presence of left artificial hip joint
CPT/HCPCS: 73502

== ENCOUNTER → 2017-03-09 | Outpatient (CLI) | payer BC ==
--- NOTE | 2017-03-09 10:59 | RADRPT ---
PROCEDURE: XR pelvis/left hip. CLINICAL INDICATION: Hip pain TECHNIQUE: AP pelvis/lateral left hip views performed. COMPARISON: 02/09/2017 FINDINGS: There is a left total hip replacement. There is no evidence of loosening of the prosthesis. No hardw are failure identified. There is severe right hip osteoarthrosis. This is associated with joint space narrowing, subchondral sclerosis, subchondral cyst formation and osteophytosis. There is normal osseous mineralization. No fractures or osseous lesions are identified. The soft tissues are unremarkable. There are degenerative changes of the lower lumbar spine. IMPRESSION: Left total hip replacement. Severe right hip osteoarthrosis. Severe degenerative changes of the lower lumbar spine RPTAT: HGDB .Vikas Gloria MD, Date Time Electronically viewed and signed by .Vikas Gloria MD, on 03/09/2017 10:58 .B/
== END | disposition home or self-care (01) ==
LOC: HKI 10:05
PROVIDERS: ATTEND Orthopaedic Surgery
DX: Z47.1 Aftercare following joint replacement surgery (principal); M16.12 Unilateral primary osteoarthritis, left hip; Z96.642 Presence of left artificial hip joint
CPT/HCPCS: 73502